=== PATIENT | male | born 1950 | race Caucasian/White ===

== ENCOUNTER 2017-09-08 09:03 | Inpatient (IN) | payer OTHER, MEDICARE ==
[~2017-09-08] VITALS: Ht 190.5 cm; Wt 102.0 kg
[2017-09-08] VITALS (11 sets, daily range): BP systolic 118–152; BP diastolic 73–95; PULSE 72–87; RESP 17–20; TEMP 97.6–98.4; O2SAT 92–98
[2017-09-08] MEDS: SODIUM CHLOR 0.9% 1000 ML IV SCH (09:00)
[~2017-09-08 09:03] MED LIST: ASPI-516 CHEW; ASPI1TAB7 PO; BUPR150XL PO; LORA0.5T PO; LOSA25 PO; OMEP2.5S; PRIL20CA PO
[2017-09-08] MEDS ORDERED: SODIUM CHLORIDE 2 ML FLUSH PRN IV FLUSH (09:45)
[2017-09-08] MEDS ORDERED: fentaNYL CITRATE 250 MCG/5 ML AMP ONE (10:10)
[2017-09-08] MEDS ORDERED: MIDAZOLAM HCL 2 MG/2 ML VIAL ONE ×2 (10:10→15:40)
--- NOTE | 2017-09-08 10:48 | PD.RAD ---
Post Procedure Progress Note Pre Procedure Diagnosis: (1) Pulmonary nodule Post Procedure Diagnosis: (1) Pulmonary nodule Procedure Date: Sep 08, 2017 Supervising Radiologist: Dereck Tamayo Anesthesia: Local, Conscious Sedation Plan of Activity Patient to Unit: ROPU Patient Condition: Good Additional Comments: 3 20 ga core biopsies of the left lung mass preformed. Samples sent for culture and pathology See PACS Report for procedural detail/treatment Dereck Tamayo MD Sep 08, 2017 10:48
--- NOTE | 2017-09-08 12:58 | RADRPT ---
EXAM DATE/TIME: 09/08/2017 10:22 [facility] COMPARISON: CT NEEDLE BIOPSY LUNG, RIGHT, August 15, 2017, 8:20. INDICATIONS : Left lung mass. SEDATION TIME: 20 minutes BIOPSY SITE: Left MEDICATION(S): 1.) 2 mg midazolam (Versed) IV 2.) 100 mcg fentanyl (Sublimaze) IV DEVICE(S): 1.) 18 gauge Bard MEDICAL HISTORY : None. SURGICAL HISTORY : None. ENCOUNTER: Initial ACUITY: 1 day PAIN SCORE: 0/10 LOCATION: Left chest A total of one core specimen(s) were obtained and sent to the laboratory for pathologic evaluation. PROCEDURE: 1. CT guided lung biopsy. 2. Conscious sedation with continuous EKG and oximetry monitoring. 3. EKG and oximetry remained stable throughout the procedure. Prior to the procedure informed consent was obtained. Any appropriate prior imaging studies were rev iewed. Using automated exposure control and adjustment of the mA and/or kV according to patient size, radiation dose was kept as low as reasonably achievable to obtain optimal diagnostic quality images. DICOM format image data is available electronically for review and comparison. The site was prepped in a sterile fashion. Full sterile technique was used, including cap, mask, christiano rile gloves and gown and a large sterile sheet. Hand hygiene and 2% chlorhexidine and/or betadine/al cohol prep was utilized per protocol for cutaneous antisepsis. The skin and subcutaneous tissues wer e infiltrated with local anesthetic solution. With CT guidance the previously identified target was localized. Biopsy was performed using the presc ribed needle as above. Adequate hemostasis was obtained with compression at the puncture site. Follow-up CT scan reveals no pneumothorax. Conscious sedation was performed with the prescribed dosages and duration as above in the presence of an independent trained radiology nurse to assist in the monitoring of the patient. EKG and oximetry remained stable throughout the procedure. The patient tolerated the procedure well and there were no complications. The patient was sent to Radiology Outpatient Unit in stable condition. CONCLUSION: Uncomplicated CT guided biopsy. Samples were sent for pathology well as culture and sensitivity. Dereck Tamayo MD on September 08, 2017 at 12:55 Board Certified Radiologist. This report was verified electronically.
--- NOTE | 2017-09-08 15:06 | RADRPT ---
EXAM DATE/TIME: 09/08/2017 13:57 [facility] COMPARISON: CT NEEDLE BIOPSY LUNG, LEFT, September 08, 2017, 10:22. CHEST EXPIRATION ONLY, August 15, 2017, 11:5 4. INDICATIONS : Post lung biopsy. Evualuate for pneumothorax. MEDICAL HISTORY : None. SURGICAL HISTORY : None. ENCOUNTER: Subsequent ACUITY: 1 day PAIN SCORE: 0/10 LOCATION: Bilateral chest FINDINGS: Single view chest is provided. Bilateral lung masses. Patient is recently post biopsy left lung. There is a small left-sided pneumothorax. The heart is normal in size. The mediastinal contours demonstrate prominence of the right usha. The osseous structures are intact. CONCLUSION: 1. Small left pneumothorax post CT guided biopsy of the left lung.. Dereck Tamayo MD on September 08, 2017 at 15:00 Board Certified Radiologist. This report was verified electronically.
--- NOTE | 2017-09-08 16:38 | PD.RAD ---
Post Procedure Progress Note Pre Procedure Diagnosis: (1) Pneumothorax after biopsy (2) Pulmonary nodule Post Procedure Diagnosis: (1) Pulmonary nodule (2) Pneumothorax after biopsy Procedure Date: Sep 08, 2017 Supervising Radiologist: Soham Rodriguez Proceduralist/Assist: Teresa Navarrete, RT(R)(), DEAN Vernon, RT(R)(CV) Anesthesia: Local, Analgesia, Conscious Sedation Plan of Activity Patient to Unit: ROPU Patient Condition: Good See PACS Report for procedural detail/treatment Drainage Procedure Procedure 1 Imaging Guidance: Fluoroscopy Side: Left Procedure Type: Chest Tube Non-Tunneled Procedure: Placement Maltese: 10 Drainage: Pleurovac (40 cmH2O) Soham Rodriguez MD Sep 08, 2017 16:37
--- NOTE | 2017-09-08 17:10 | RADRPT ---
EXAM DATE/TIME: 09/08/2017 16:41 [facility] COMPARISON: CT NEEDLE BIOPSY LUNG, RIGHT, August 15, 2017, 8:20. CHEST EXPIRATION ONLY, August 15, 2017, 11:[address] NEEDLE BIOPSY LUNG, LEFT, September 08, 2017, 10:22. CHEST EXPIRATION ONLY, September 08, 2017, 13:57. INDICATIONS : Evaluate pneumothorax post right lung biopsy MEDICAL HISTORY : None. SURGICAL HISTORY : None. ENCOUNTER: Subsequent ACUITY: 1 day PAIN SCORE: 0/10 LOCATION: chest FINDINGS: Small left chest tube has been placed and is in good position. The left pneumothorax has resolved. Th ere is a tiny right apical pneumothorax measuring 19 mm. Right perihilar mass and left upper lobe mas s are stable. CONCLUSION: 1. Resolution of the left-sided pneumothorax status post placement of left chest tube. 2. Tiny right apical pneumothorax measuring 19 mm. Mk Melchor MD on September 08, 2017 at 17:04 Board Certified Radiologist. This report was verified electronically.
[2017-09-08] MEDS: oxyCODONE/ACETAMINOPHEN 5 MG/325 MG TAB PO PRN ×2 (18:34→22:22)
[2017-09-08] MEDS: SODIUM CHLORIDE 2 ML FLUSH BID IV FLUSH SCH (21:51)
[2017-09-09 00:02] VITALS: BP 128/72; PULSE 72; RESP 17; TEMP 98.4; O2SAT 95
[2017-09-09 04:00] VITALS: BP 140/74; PULSE 71; RESP 19; TEMP 98; O2SAT 96
[2017-09-09] MEDS: oxyCODONE/ACETAMINOPHEN 5 MG/325 MG TAB PO PRN (04:23)
--- NOTE | 2017-09-09 06:50 | RADRPT ---
EXAM DATE/TIME: 09/09/2017 06:12 [facility] COMPARISON: CHEST EXPIRATION ONLY, September 08, 2017, 16:41. INDICATIONS : Evaluate pneumothorax and left chest tube, coughing MEDICAL HISTORY : lung mass SURGICAL HISTORY : chest tube ENCOUNTER: Subsequent ACUITY: 2 days PAIN SCORE: 3/10 LOCATION: Left chest FINDINGS: There is a small caliber left chest tube no significant pneumothorax. There is a small right apical p neumothorax not significantly changed since September 08. Mild perihilar and basilar airspace disease i s also stable. No significant effusion. Heart size normal. CONCLUSION: 1. Small caliber left chest tube without significant pneumothorax. Small right pneumothorax. Dominick Hunt MD on September 09, 2017 at 6:47 Board Certified Radiologist. This report was verified electronically.
[2017-09-09 07:41] VITALS: BP 133/60; PULSE 58; RESP 20; TEMP 98.4; O2SAT 94
[2017-09-09] MEDS ORDERED: INFLUENZA VIRUS VACCINE (QUADRIVALENT) 0.5 ML SYR IM ONE (09:00)
[2017-09-09] MEDS ORDERED: PNEUMOCOCCAL POLYVALENT INJ 25 MCG/0.5 ML SYR IM ONE (09:00)
[2017-09-09] MEDS: SODIUM CHLORIDE 2 ML FLUSH BID IV FLUSH SCH (09:03)
[2017-09-09] MEDS: SODIUM CHLOR 0.9% 1000 ML IV SCH (11:35)
[2017-09-09 11:45] VITALS: BP 124/56; PULSE 78; RESP 20; TEMP 98; O2SAT 98
[2017-09-09] MEDS ORDERED: OXYC1TAB63 PO (13:07)
--- NOTE | 2017-09-09 13:07 | HHI.HP ---
HPI Service [facility] Primary Care Physician Jesus Barrow M.D. Admission Diagnosis Diagnoses: Chief Complaint: Pneumothorax Travel History International Travel<30 Days: No Contact w/Intl Traveler <30 Da: No Traveled to Known Affected Are: No History of Present Illness Mr. Stringer is a pleasant 66 year old male with a history of recently diagnosed lung cancer with possible mets to brain who was admitted to the hospital following a left lung biopsy because he developed pneumothorax. A chest tube was placed by interventional radiology. IR performed serial clinical exam as well as CXR and eventually chest tube was removed. Patient was seen prior to removal of his chest tube. He is eager to go home. He denies any chest pain, shortness of breath, fever, chills. Denies any changes in bowel or bladder habits. He follows up with Dr. Mireles (Heme/onc). Review of Systems Except as stated in HPI: all other systems reviewed are Neg Past Family Social History Past Medical History Recently diagnosed lung cancer Likely mets to brain Past Surgical History Neck tumor removal Appendectomy Cataract surgery Allergies: Coded Allergies: lisinopril (Verified Allergy, Intermediate, Swelling, 09/08/17) ankles Family History Two brothers had pancreatic cancer. Social History Quit smoking in 2004 Quit drinking alcohol in Jun 2017. Physical Exam Vital Signs Vital Signs Date Time Temp Pulse Resp B/P (MAP) Pulse Ox O2 Delivery O2 Flow Rate FiO2 09/09/17 11:45 98.0 78 20 124/56 (78) 98 09/09/17 07:41 98.4 58 20 133/60 (84) 94 09/09/17 04:00 98.0 71 19 140/74 (96) 96 09/09/17 00:02 98.4 72 17 128/72 (90) 95 09/08/17 16:40 80 18 138/82 (100) 94 09/08/17 16:25 98.0 81 20 126/86 (99) 95 09/08/17 16:25 Room Air 09/08/17 14:15 78 20 139/83 (101) 98 09/08/17 13:15 97 1.00 09/08/17 13:15 78 20 127/78 (94 98 Physical Exam GENERAL: This is a well-nourished, well-developed patient, in no apparent distress. SKIN: No rashes, ecchymoses or lesions. Warm and dry. HEAD: Atraumatic. Normocephalic. No temporal or scalp tenderness. EYES: Pupils equal round and reactive. No injection or drainage. ENT: Nose without bleeding, purulent drainage or septal hematoma. Airway patent. NECK: Trachea midline. No lymphadenopathy. Supple, nontender, no meningeal signs. CARDIOVASCULAR: Regular rate and rhythm without murmurs, gallops, or rubs. No JVD. Chest tube in place. RESPIRATORY: Moderate air entry. Breath sounds equal bilaterally. No wheezes, rales, or rhonchi. GASTROINTESTINAL: Abdomen soft, non-tender, nondistended. No guarding. MUSCULOSKELETAL: Extremities without clubbing, cyanosis, or edema. NEUROLOGICAL: Awake and alert. Cranial nerves II through XII intact. No focal neurological deficits. Normal speech. Imaging Last Impressions Chest X-Ray 09/09/17 1515 Signed Impressions: Service Date/Time: Saturday, September 09, 2017 15:18 - CONCLUSION: No recurrent pneumothorax status post left chest tube removal. Tiny stable right apical pneumothorax. Bilateral stable pulmonary masses. Mk Melchor MD Lung Biopsy CT 09/08/17 0000 Signed Impressions: Service Date/Time: September 10:22 - CONCLUSION: Uncomplicated CT guided biopsy. Samples were sent for pathology well as culture and sensitivity. Dereck Tamayo MD Caprini VTE Risk Assessment Caprini VTE Risk Assessment: Mod/High Risk (score >= 2) Caprini Risk Assessment Model Point Value = 1 Point Value = 2 Point Value = 3 Point Value = 5 Age 41-60 Minor surgery BMI > 25 kg/m2 Swollen legs Varicose veins or History of unexplained or recurrent spontaneous Oral contraceptives or hormone replacement Sepsis (< 1 month) Serious lung disease, including pneumonia (< 1 month) Abnormal pulmonary function Acute myocardial infarction Congestive heart failure (< 1 month) History of inflammatory bowel disease Medical patient at bed rest Age 61-74 Arthroscopic surgery Major open surgery (> 45 min) Laparoscopic surgery (> 45 min) Malignancy Confined to bed (> 72 hours) Immobilizing plaster cast Central venous access Age >= 75 History of VTE Family history of VTE Factor V Leiden Prothrombin [id number] Lupus anticoagulant Anticardiolipin antibodies Elevated serum homocysteine Heparin-induced thrombocytopenia Other congenital or acquired thrombophilia Stroke (< 1 month) Elective arthroplasty Hip, pelvis, or leg fracture Acute spinal cord injury (< 1 month) Prophylaxis Regimen Total Risk Factor Score Risk Level Prophylaxis Regimen 0-1 Low Early ambulation 2 Moderate Order ONE of the following: *Sequential Compression Device (SCD) *Heparin 5000 units SQ BID 3-4 Higher Order ONE of the following medications: *Heparin 5000 units SQ TID *Enoxaparin/Lovenox 40 mg SQ daily (WT < 150 kg, CrCl > 30 mL/min) *Enoxaparin/Lovenox 30 mg SQ daily (WT < 150 kg, CrCl > 10-29 mL/min) *Enoxaparin/Lovenox 30 mg SQ BID (WT < 150 kg, CrCl > 30 mL/min) AND/OR *Sequential Compression Device (SCD) 5 or more Highest Order ONE of the following medications: *Heparin 5000 units SQ TID (Preferred with Epidurals) *Enoxaparin/Lovenox 40 mg SQ daily (WT < 150 kg, CrCl > 30 mL/min) *Enoxaparin/Lovenox 30 mg SQ daily (WT < 150 kg, CrCl > 10-29 mL/min) *Enoxaparin/Lovenox 30 mg SQ BID (WT < 150 kg, CrCl > 30 mL/min) AND *Sequential Compression Device (SCD) Assessment and Plan Problem List: (1) Lung cancer ICD Code: C34.90 - Malignant neoplasm of unspecified part of unspecified bronchus or lung (2) Pneumothorax after biopsy ICD Code: J95.811 - Postprocedural pneumothorax (3) Pulmonary nodule ICD Code: R91.1 - Solitary pulmonary nodule Assessment and Plan Mr. Stringer is a pleasant 66 year old male with a recently diagnosis of lung cancer, possible brain mets who was admitted to the hospital on 09/08/2017 after lung bx because he developed pneumothorax. - Lung cancer - Left lung mass - s/p CT guided bx. - Follows up with Dr. Mireles (Heme/onc). - Left sided pneumothorax - Small right sided pneumothorax - s/p Left sided chest tube placement. Later in the day, it was taken out. Repeat cxr shows resolution - IR cleared patient for discharge. Full code. Ambulation Discharge patient to home Condition on discharge: Improved Regular Diet as tolerated Ad Nivia activity Rx written: - [place] 5/325 Q6hrs PRN #12 Follow-up with primary care physician PRN, Oncology within two weeks. Physician Certification 2 Midnight Certification Type: Admission for Inpatient Services Order for Inpatient Services The services are ordered in accordance with Medicare regulations or non- Medicare payer requirements, as applicable. In the case of services not specified as inpatient-only, they are appropriately provided as inpatient services in accordance with the 2-midnight benchmark. Estimated LOS (days): 2 days is the estimated time the patient will need to remain in the hospital, assuming treatment plan goals are met and no additional complications. Post-Hospital Plan: Home Notes: Patient was admitted to the hospital due to pneumothorax after lung biopsy. He required Chest tube placement. Although expected hospitalization was more than 2 days, his pneumothorax improved quickly. Patient remained hemodynamically stable. Serial clinical exam and CXR showed resolution/improvement. Patient was subsequently discharged home. Mickie Abarca DO Sep 09, 2017 13:07
--- NOTE | 2017-09-09 13:21 | RADRPT ---
EXAM DATE/TIME: 09/09/2017 13:05 [facility] COMPARISON: CHEST EXPIRATION ONLY, September 09, 2017, 6:12. INDICATIONS : Pneumothorax, post left lung biopsy. MEDICAL HISTORY : left lung mass SURGICAL HISTORY : chest tube ENCOUNTER: Subsequent ACUITY: 2 days PAIN SCORE: 0/10 LOCATION: Left chest FINDINGS: There is a tiny stable right apical pneumothorax. Small left chest tube remains unchanged in position . No residual or recurrent left pneumothorax is noted. Perihilar infiltrates are stable. The heart is stable. CONCLUSION: 1. Tiny stable right apical pneumothorax. 2. No recurrent or residual left pneumothorax. 3. Stable perihilar infiltrates bilaterally. Mk Melchor MD on September 09, 2017 at 13:16 Board Certified Radiologist. This report was verified electronically.
--- NOTE | 2017-09-09 15:47 | RADRPT ---
EXAM DATE/TIME: 09/09/2017 15:18 [facility] COMPARISON: CHEST SINGLE AP, September 09, 2017, 13:05. INDICATIONS : Status post left sided chest tube removal. MEDICAL HISTORY : Left lung mass. SURGICAL HISTORY : Left sided chest tube. ENCOUNTER: Subsequent ACUITY: 1 day PAIN SCORE: 0/10 LOCATION: chest FINDINGS: No recurrent pneumothorax is noted status post left chest tube removal. Tiny stable right apical pneu mothorax is noted. Bilateral pulmonary masses are stable. CONCLUSION: No recurrent pneumothorax status post left chest tube removal. Tiny stable right apical pneumothorax. Bilateral stable pulmonary masses. Mk Melchor MD on September 09, 2017 at 15:43 Board Certified Radiologist. This report was verified electronically.
--- NOTE | 2017-09-09 15:54 | PD.RAD ---
Radiology Note No ptx post chest tube removal. Cleared for discharge from IR standpoint. Soham Rodriguez MD Sep 09, 2017 15:54
--- NOTE | 2017-09-13 11:29 | RADRPT ---
EXAM DATE/TIME: 09/09/2017 00:00 [facility] COMPARISON: No previous studies available for comparison. INDICATIONS : resolved pneumothorax DEVICE(S): 1.) PROCEDURE : Chest tube removal. Using aseptic technique the previously placed chest tube was easily removed in one piece and Vaseline gauze and sterile dressing was applied. Chest radiograph is to be obtained. CONCLUSION: Uncomplicated chest tube removal. Soham Rodriguez MD on September 13, 2017 at 11:27 Board Certified Radiologist. This report was verified electronically.
== END 2017-09-09 16:21 | disposition home or self-care (01) | DRG 200 ==
LOC: HRAD 09:03 → HRIP 09:04 → HRAD 15:18 → MERGE 15:19 → N05B 15:19
PROVIDERS: ADMIT Radiology Radiation Oncology; ATTEND Radiology Radiation Oncology
PROC: 0BBL3ZX Excision of Left Lung, Percutaneous Approach, Diagnostic (ICD-10-PCS; principal; 2017-09-08)
PROC: 0W9B30Z Drainage of Left Pleural Cavity with Drainage Device, Percutaneous Approach (ICD-10-PCS; 2017-09-08)
PROC: 0WPBX0Z Removal of Drainage Device from Left Pleural Cavity, External Approach (ICD-10-PCS; 2017-09-09)
DX: J95.811 Postprocedural pneumothorax (principal); C34.92 Malignant neoplasm of unspecified part of left bronchus or lung; C79.31 Secondary malignant neoplasm of brain; C34.91 Malignant neoplasm of unspecified part of right bronchus or lung; Z87.891 Personal history of nicotine dependence; Z23 Encounter for immunization
CPT/HCPCS: 32405; 32557; 71045; 77012; 81210; 81235; 87015; 88305; 88360; 88377; 88381; 90686; 90732; 99152; C1729; C1769; J2250; J3010; J7030; Q2038

== ENCOUNTER 2017-09-19 15:38 | Emergency (ER) | payer OTHER ==
[~2017-09-19 15:38] MED LIST changes: -ASPI-516 CHEW; +OXYC1TAB63 PO
[2017-09-19 15:41] VITALS: BP 172/80; PULSE 74; RESP 16; TEMP 98.1; O2SAT 95
--- NOTE | 2017-09-19 16:15 | RADRPT ---
EXAM DATE/TIME: 09/19/2017 15:58 [facility] COMPARISON: CT NEEDLE BIOPSY LUNG, LEFT, September 08, 2017, 10:22. INDICATIONS : Syncopal episode today RADIATION DOSE: 56.35 CTDIvol (mGy) MEDICAL HISTORY : Carcinoma, lung. Hernia, hiatal. Renal disease SURGICAL HISTORY : Appendectomy. ENCOUNTER: Initial ACUITY: 1 day PAIN SCALE: 3/10 LOCATION: cranial TECHNIQUE: Multiple contiguous axial images were obtained of the head. Using automated exposure control and adj ustment of the mA and/or kV according to patient size, radiation dose was kept as low as reasonably a chievable to obtain optimal diagnostic quality images. DICOM format image data is available electro nically for review and comparison. FINDINGS: CEREBRUM: The ventricles are normal for age. No evidence of midline shift, mass lesion, hemorrhage or acute in farction. No extra-axial fluid collections are seen. POSTERIOR FOSSA: The cerebellum and brainstem are intact. The 4th ventricle is midline. The cerebellopontine angle i s unremarkable. EXTRACRANIAL: The visualized portion of the orbits is intact. SKULL: The calvaria is intact. No evidence of skull fracture. CONCLUSION: 1. No acute intercranial abnormality. Dereck Tamayo MD on September 19, 2017 at 16:11 Board Certified Radiologist. This report was verified electronically.
--- NOTE | 2017-09-19 16:18 | RADRPT ---
EXAM DATE/TIME: 09/19/2017 15:52 [facility] COMPARISON: CHEST SINGLE AP, September 09, 2017, 13:05. CHEST SINGLE AP, September 09, 2017, 15:18. INDICATIONS : Chest pain, has had weakness and vertigo for 3 weeks, passed out today MEDICAL HISTORY : Carcinoma, lung. SURGICAL HISTORY : chest tube ENCOUNTER: Initial ACUITY: 1 day PAIN SCORE: Non-responsive. LOCATION: Bilateral chest FINDINGS: PA and lateral views of the chest demonstrate stable appearance to bilateral pulmonary masses. No ne w opacity seen. The heart is normal in size. Both hemidiaphragms are well delineated. No evidence of pneumothorax. The osseous structures are grossly intact. CONCLUSION: No acute findings. No evidence of pneumothorax. Bilateral pulmonary masses. Odilon Baca MD on September 19, 2017 at 16:15 Board Certified Radiologist. This report was verified electronically.
[2017-09-19 17:16] LABS: BASOPHIL % 0.3 % (0.0-2.0); EOSINOPHIL # 0.3 TH/MM3 (0-0.4); EOSINOPHIL % 4.2 % (0.0-4.0); HEMATOCRIT 39.1 % (39.0-51.0); HEMOGLOBIN 13.3 GM/DL (13.0-17.0); LYMPH % 14.2 % (9.0-44.0); MEAN CELL VOLUME 93.7 FL (80.0-100.0); MEAN CORPUSCULAR HEMOGLOBIN 31.9 PG (27.0-34.0); MEAN CORPUSCULAR HGB CONC 34.1 % (32.0-36.0); MONO % 8.6 % (0.0-8.0); MONOCYTE # 0.6 TH/MM3 (0-0.9); NEUT % 72.7 % (16.0-70.0); PLATELET COUNT 225 TH/MM3 (150-450); RED BLOOD COUNT 4.18 MIL/MM3 (4.50-5.90); RED CELL DISTRIBUTION WIDTH 12.9 % (11.6-17.2); WHITE BLOOD COUNT 6.9 TH/MM3 (4.0-11.0)
[2017-09-19 17:29] LABS: BICARBONATE 27.5 MEQ/L (21.0-32.0); BLOOD UREA NITROGEN 16 MG/DL (7-18); CHLORIDE 102 MEQ/L (98-107); CREATININE 0.92 MG/DL (0.60-1.30); GLOMERULAR FILTRATION RATE 82 ML/MIN (>89); GLUCOSE,RANDOM 79 MG/DL (74-106); MAGNESIUM 2.1 MG/DL (1.5-2.5); SODIUM (NA) 137 MEQ/L (136-145)
[2017-09-19 17:30] LABS: INTERNATIONAL NORMALIZED RATIO 1.1 RATIO; PROTHROMBIN TIME - PATIENT 10.9 SEC (9.8-11.6)
[2017-09-19 17:34] LABS: TROPONIN I LESS THAN 0.02 NG/ML (0.02-0.05)
[2017-09-19 18:42] VITALS: BP 178/77; PULSE 92; RESP 16; O2SAT 96
[2017-09-19] MEDS ORDERED: OMEGCAP PO (18:54)
[2017-09-19] MEDS ORDERED: ASPI-516 CHEW (18:54)
[2017-09-19] MEDS ORDERED: OMEP20TA93 PO (18:54)
--- NOTE | 2017-09-19 19:24 | PD ---
HPI Chief Complaint: General Weakness Time Seen by Provider: 18:28 Travel History International Travel<30 days: No Contact w/Intl Traveler<30days: No Traveled to known affect area: No History of Present Illness HPI 66-year-old male with a recent diagnosis of small cell carcinoma lung cancer presents emergency department after syncopal episode that occurred this this morning. States that he was in his bathroom and had a single episode for approximately 5 minutes. He assumes that he had his head. Pt woke up and performed his daily activities without issue to include going to appointments and getting a tattoo. Patient states that he has had a disequilibrium, headache , "stumbling", and fatigue for approximately 2-3 weeks. States he was at his appointment today for mapping of his lungs and Dr. Mireles advised him to come to the emergency department for evaluation. States he had a brain MRI 1 month ago which revealed a likely metastatic 7 mm mass. States he has been eating and drinking normally. Denies fever, chills, chest pain, unusual shortness of breath. Pt is not on a blood thinner. No history of CAD. PFSH Past Medical History Anxiety: Yes Cancer: Yes (STAGE 4 LUNG) Cardiovascular Problems: No Diabetes: No Diminished Hearing: Yes (RIGHT EAR) Endocrine: No GERD: Yes Genitourinary: No Hepatitis: No Hiatal Hernia: Yes Hypertension: Yes Immune Disorder: No Musculoskeletal: No Neurologic: No Psychiatric: Yes (Anxiety) Reproductive: No Respiratory: Yes (LUNG CA) Immunizations Current: Yes Radiation Therapy: No (DUE TO RECEIVE) Thyroid Disease: No Past Surgical History Abdominal Surgery: Yes (APPENDECTOMY) AICD: No Appendectomy: Yes Eye Surgery: Yes Joint Replacement: No Pacemaker: No Other Surgery: Yes (TUMOR REMOVAL LEFT NECK.) Social History Alcohol Use: No Tobacco Use: No Substance Use: No Allergies-Medications (Allergen,Severity, Reaction): Coded Allergies: lisinopril (Verified Allergy, Intermediate, Swelling, 09/10/17) ankles No Known Allergies (Unverified Allergy, Unknown, 09/19/17) Reported Meds & Prescriptions Reported Meds & Active Scripts Active Meclizine (Meclizine HCl) 25 Mg Tab 25 Mg PO TID PRN 5 Days Reported Mellott-3 Fish Oil/Vitamin (Fish Oil-Cholecalciferol) 1,000-1,000 Mg Cap 3 Cap PO DAILY Omeprazole 20 Mg Tab 20 Mg PO DAILY Aspirin 81 Mg Chew 81 Mg CHEW DAILY Lorazepam 0.5 Mg Tab 1 Mg PO Q6HR PRN Wellbutrin Xl 24 HR (Bupropion HCl) 150 Mg Tab 150 Mg PO DAILY Review of Systems Except as stated in HPI: all other systems reviewed are Neg Physical Exam Narrative GENERAL: Well-developed, well-nourished, in no apparent distress SKIN: Focused skin assessment warm/dry. HEAD: Atraumatic. Normocephalic. EYES: Pupils equal and round. No scleral icterus. No injection or drainage. EOMI ENT: No nasal bleeding or discharge. Mucous membranes pink and moist. NECK: Trachea midline. No JVD. No lymphadenopathy CARDIOVASCULAR: Regular rate and rhythm. No murmur appreciated. RESPIRATORY: No accessory muscle use. Clear to auscultation. Breath sounds equal bilaterally. GASTROINTESTINAL: Abdomen soft, non-tender, nondistended. No CVA tenderness MUSCULOSKELETAL: No obvious deformities. No clubbing. No cyanosis. No edema. NEUROLOGICAL: Awake and alert. No obvious cranial nerve deficits. Motor grossly within normal limits. Normal speech. No ataxic gait. PSYCHIATRIC: Appropriate mood and affect; insight and judgment normal. Data Data Last Documented VS Vital Signs Date Time Temp Pulse Resp B/P (MAP) Pulse Ox O2 Delivery O2 Flow Rate FiO2 09/19/17 22:00 09/19/17 19:52 80 18 96 Room Air 09/19/17 15:41 98.1 Orders Orders Electrocardiogram (09/19/17 15:43) Basic Metabolic Panel (Bmp) (09/19/17 15:43) Complete Blood Count With Diff (09/19/17 15:43) Magnesium (Mg) (09/19/17 15:43) Ckmb (Isoenzyme) Profile (09/19/17 15:43) Troponin I (09/19/17 15:43) Act Partial Throm Time (Ptt) (09/19/17 15:43) Prothrombin Time / Inr (Pt) (09/19/17 15:43) Chest, Pa & Lat (09/19/17 15:43) Ct Brain W/O Iv Contrast(Rout) (09/19/17 15:43) CKMB (09/19/17 16:33) CKMB% (09/19/17 16:33) Mri Brain W&W/O Contrast (09/19/17 ) Gadodiamide Pf Inj (Omniscan Pf Inj) (09/19/17 21:17) Ed Discharge Order (09/19/17 21:57) Labs Laboratory Tests Test 09/19/17 16:33 White Blood Count 6.9 TH/MM3 Red Blood Count 4.18 MIL/MM3 Hemoglobin 13.3 GM/DL Hematocrit 39.1 % Mean Corpuscular Volume 93.7 FL Mean Corpuscular Hemoglobin 31.9 PG Mean Corpuscular Hemoglobin Concent 34.1 % Red Cell Distribution Width 12.9 % Platelet Count 225 TH/MM3 Mean Platelet Volume 8.0 FL Neutrophils (%) (Auto) 72.7 % Lymphocytes (%) (Auto) 14.2 % Monocytes (%) (Auto) 8.6 % Eosinophils (%) (Auto) 4.2 % Basophils (%) (Auto) 0.3 % Neutrophils # (Auto) 5.0 TH/MM3 Lymphocytes # (Auto) 1.0 TH/MM3 Monocytes # (Auto) 0.6 TH/MM3 Eosinophils # (Auto) 0.3 TH/MM3 Basophils # (Auto) 0.0 TH/MM3 CBC Comment DIFF FINAL Differential Comment Prothrombin Time 10.9 SEC Prothromb Time International Ratio 1.1 RATIO Activated Partial Thromboplast Time 28.1 SEC Blood Urea Nitrogen 16 MG/DL Creatinine 0.92 MG/DL Random Glucose 79 MG/DL Calcium Level 9.0 MG/DL Magnesium Level 2.1 MG/DL Sodium Level 137 MEQ/L Potassium Level 4.0 MEQ/L Chloride Level 102 MEQ/L Carbon Dioxide Level 27.5 MEQ/L Anion Gap 8 MEQ/L Estimat Glomerular Filtration Rate 82 ML/MIN Total Creatine Kinase 106 U/L Creatine Kinase MB 1.7 NG/ML Troponin I LESS THAN 0.02 NG/ML MDM Medical Decision Making Medical Screen Exam Complete: Yes Emergency Medical Condition: Yes Differential Diagnosis vertigo, disequilibrium, dehydration, metastatic disease to brain, cerebral edema Narrative Course 66-year-old male with a recent diagnosis of small cell carcinoma lung cancer presents emergency department after syncopal episode that occurred this this morning. States that he was in his bathroom and had a single episode for approximately 5 minutes. Pt woke up on his own accord and performed his daily activities without issue to include going to appointments and getting a tattoo. Patient states that he has had a disequilibrium, headache, "stumbling", and fatigue for approximately 2-3 weeks. No palliative or provocative factors. Denies tinnitus. States he was at his appointment for mapping of his lungs and Dr. Mireles advised him to come to the emergency department for evaluation. States he had a brain MRI 1 month ago which revealed a likely metastatic 7 mm mass. States he has been eating and drinking normally. Denies fever, chills, chest pain, unusual shortness of breath. Pt is not on a blood thinner. No history of CAD. Vital signs stable. Exam revealed no neuro deficits, no ataxic gait, no obvious cerebellar dysfunction. Patient is rather anxious to leave the ED today. Review the MRI report from [facility] from July which revealed a concerning lesion. I decided to order an MRI to rule out cerebral edema or worsening mass. Last Impressions Head CT [id number] Signed Impressions: Service Date/Time: Tuesday, September 19, 2017 15:58 - CONCLUSION: 1. No acute intercranial abnormality. Dereck Tamayo MD Chest X-Ray [id number] Signed Impressions: Service Date/Time: Tuesday, September 19, 2017 15:52 - CONCLUSION: No acute findings. No evidence of pneumothorax. Bilateral pulmonary masses. Odilon Baca MD Brain MRI 09/19/17 0000 Signed Impressions: Service Date/Time: Tuesday, September 19, 2017 20:36 - CONCLUSION: Normal examination. Dat Campos MD Laboratory Tests Test 09/19/17 16:33 White Blood Count 6.9 TH/MM3 Red Blood Count 4.18 MIL/MM3 Hemoglobin 13.3 GM/DL Hematocrit 39.1 % Mean Corpuscular Volume 93.7 FL Mean Corpuscular Hemoglobin 31.9 PG Mean Corpuscular Hemoglobin Concent 34.1 % Red Cell Distribution Width 12.9 % Platelet Count 225 TH/MM3 Mean Platelet Volume 8.0 FL Neutrophils (%) (Auto) 72.7 % Lymphocytes (%) (Auto) 14.2 % Monocytes (%) (Auto) 8.6 % Eosinophils (%) (Auto) 4.2 % Basophils (%) (Auto) 0.3 % Neutrophils # (Auto) 5.0 TH/MM3 Lymphocytes # (Auto) 1.0 TH/MM3 Monocytes # (Auto) 0.6 TH/MM3 Eosinophils # (Auto) 0.3 TH/MM3 Basophils # (Auto) 0.0 TH/MM3 CBC Comment DIFF FINAL Differential Comment Prothrombin Time 10.9 SEC Prothromb Time International Ratio 1.1 RATIO Activated Partial Thromboplast Time 28.1 SEC Blood Urea Nitrogen 16 MG/DL Creatinine 0.92 MG/DL Random Glucose 79 MG/DL Calcium Level 9.0 MG/DL Magnesium Level 2.1 MG/DL Sodium Level 137 MEQ/L Potassium Level 4.0 MEQ/L Chloride Level 102 MEQ/L Carbon Dioxide Level 27.5 MEQ/L Anion Gap 8 MEQ/L Estimat Glomerular Filtration Rate 82 ML/MIN Total Creatine Kinase 106 U/L Creatine Kinase MB 1.7 NG/ML Troponin I LESS THAN 0.02 NG/ML Pt remained symptom free in the ED today. Advised that he should follow-up with his primary care physician and Dr. Mireles regarding his symptoms. I suspect that there is a peripheral vertigo problem. Aside from today's syncopal episode, pt denies head trauma, no apparent brain lesion or edema, labs unremarkable, symptoms seem to be intermittent. Meclizine prescribed. He wishes to go home. I advised of the risk vs benefits and advised to use caution. Consider an assistive device for ambulation to avoid falls. Diagnosis Primary Impression: Disequilibrium Referrals: Yonatan Mireles MD Primary Care Physician Additional Instructions: Follow up with your primary care physician within 2-3 days for further evaluation of your dizziness. Scripts Meclizine (Meclizine) 25 Mg Tab 25 MG PO TID Y for VERTIGO for 5 Days, TAB 0 Refills Prov: Shania Pennington 09/19/17 Disposition: 01 DISCHARGE HOME Condition: Stable Shania ePnnington Sep 19, 2017 19:24
[2017-09-19 19:52] VITALS: BP 140/64; PULSE 80; RESP 18; O2SAT 96
[2017-09-19] MEDS ORDERED: GADODIAMIDE PF 287 MG/ML 20 ML VIAL (for RAD MRI) IV PUSH ONE (21:17)
--- NOTE | 2017-09-19 21:38 | RADRPT ---
EXAM DATE/TIME: 09/19/2017 20:36 [facility] COMPARISON: No previous studies available for comparison. INDICATIONS : Syncope with history of lung cancer. CONTRAST: 20 cc Omniscan (gadodiamide) IV MEDICAL HISTORY : Gastroesophageal reflux disease. Carcinoma, lung. Hernia, hiatal. Renal disease. SURGICAL HISTORY : Appendectomy. Cataracts. Mass removed from left side of neck. ENCOUNTER: Subsequent ACUITY: 1 day PAIN SCORE: 3/10 LOCATION: cranial TECHNIQUE: Multiplanar, multisequence MRI of the brain was performed both prior to and following the administrat ion of paramagnetic contrast. FINDINGS: CEREBRUM: The ventricles are normal for age. No evidence of midline shift, mass lesion, hemorrhage or acute in farction. No extraaxial fluid collections are seen. The pituitary gland and suprasellar cistern are normal in configuration. WHITE MATTER: No significant signal abnormalities are seen in the white matter. POSTERIOR FOSSA: The cerebellum and brainstem are intact. The 4th ventricle is midline. The cerebellopontine angle is unremarkable. The cerebellar tonsils are normal in position. DIFFUSION IMAGING: No focal areas of restricted diffusion are seen. No evidence of acute infarction. EXTRACRANIAL: The visualized portions of the orbits and paranasal sinuses are unremarkable. POST-CONTRAST: No abnormal areas of parenchymal or dural enhancement. No evidence of blood-brain barrier breakdown. CONCLUSION: Normal examination. Dat Campos MD on September 19, 2017 at 21:35 Board Certified Radiologist. This report was verified electronically.
[2017-09-19] MEDS ORDERED: MECL-62 PO ×2 (21:51→21:56)
--- NOTE | 2017-09-20 18:50 | EKG ---
Date Performed: 09/19/2017 Time Performed: 16:22:20 PTAGE: 66 years EKG: Sinus rhythm MARKED LEFT AXIS DEVIATION INCOMPLETE RIGHT BUNDLE BRANCH BLOCK ABNORMAL ECG Since the prior tracing , there has been no significant change PREVIOUS TRACING : 11/28/2015 21.40 DOCTOR: Risa Pope Interpretating Date/Time 09/20/2017 18:46:00
== END 2017-09-19 22:11 | disposition home or self-care (01) ==
LOC: NEPC 15:38
DX: E87.8 Other disorders of electrolyte and fluid balance, not elsewhere classified (principal); C34.90 Malignant neoplasm of unspecified part of unspecified bronchus or lung; F41.9 Anxiety disorder, unspecified; I10 Essential (primary) hypertension; Z88.8 Allergy status to other drugs, medicaments and biological substances; Z79.82 Long term (current) use of aspirin; Z79.899 Other long term (current) drug therapy
CPT/HCPCS: 70450; 70553; 71046; 80048; 82550; 82552; 83735; 84484; 85025; 85610; 85730; 93005; 99285; A9579